=== PATIENT | male | born 1995 | race Caucasian/White ===

== ENCOUNTER 2017-08-16 14:18 | Inpatient (IN) | payer OTHER, MEDICAID ==
--- NOTE | 2017-08-16 16:31 | ED ---
General Adult HPI - General Chief complaint: Psychiatric Symptoms Stated complaint: Mental Health Eval Time Seen by Provider: 08/16/17 15:58 Source: patient, family, RN notes reviewed Mode of arrival: ambulatory Limitations: no limitations - History of Present Illness Initial comments: Patient 21-year-old male who presents emergency room today with his mother, the chief complaint of needing a psychiatric evaluation. Patient does admit that he was just at his psychiatrist's office and was advised come over here for admission. He does admit that he's had thoughts of hurting himself. He gives an example that last night he was laying in bed and he is thinking about where weapons were in the house. Patient states he has had thoughts in the past of hurting others but there is no one specifically. Patient denies any other complaints at this time. States he has been taking his medications as prescribed. Patient denies any recent fever, chills, shortness of breath, chest pain, back pain, abdominal pain, nausea or vomiting, numbness or tingling, headaches or visual changes, or any other complaints. - Related Data Home Medications Medication Instructions Recorded Confirmed ARIPiprazole [Abilify] 30 mg PO DAILY 08/16/17 08/16/17 FLUoxetine HCL [PROzac] 40 mg PO DAILY 08/16/17 08/16/17 Allergies Allergy/AdvReac Type Severity Reaction Status Date / Time ibuprofen [From Motrin] Allergy Rash/Hives Verified 08/16/17 21:06 Milk Containing Products AdvReac Nausea & Verified 08/16/17 21:06 [Dairy] Vomiting Review of Systems ROS Statement: Those systems with pertinent positive or pertinent negative responses have been documented in the HPI. ROS Other: All systems not noted in ROS Statement are negative. Past Medical History Past Medical History: No Reported History History of Any Multi-Drug Resistant Organisms: None Reported Past Surgical History: Tonsillectomy Past Psychological History: Depression Smoking Status: Never smoker Past Alcohol Use History: None Reported Past Drug Use History: None Reported - Past Family History Family Additional Family Medical History / Comment(s): He reports an uncle with psychiatry problems that he gets admitted to our mental health unit General Exam - General Exam Comments Initial Comments: General: The patient is awake and alert, in no distress, and does not appear acutely ill. Eye: Pupils are equal, round and reactive to light, extra-ocular movements are intact. No nystagmus. There is normal conjunctiva bilaterally. No signs of icterus. Ears, nose, mouth and throat: There are moist mucous membranes and no oral lesions. Neck: The neck is supple, there is no tenderness or JVD. Cardiovascular: There is a regular rate and rhythm. No murmur, rub or gallop is appreciated. Respiratory: Lungs are clear to auscultation, respirations are non-labored, breath sounds are equal. No wheezes, stridor, rales, or rhonchi. Musculoskeletal: Normal ROM, no tenderness. Strength 5/5. Sensation intact. Pulses equal bilaterally 2+. Neurological: A&O x 3. CN II-XII intact, There are no obvious motor or sensory deficits. Coordination appears grossly intact. Speech is normal. Skin: Skin is warm and dry and no rashes or lesions are noted. Psychiatric: Cooperative. Limitations: no limitations Course Vital Signs 08/16/17 08/16/17 14:35 18:45 Temperature 98.4 F 98.9 F Pulse Rate 73 87 Respiratory 16 18 Rate Blood Pressure 152/84 142/65 O2 Sat by Pulse 100 98 Oximetry Medical Decision Making - Lab Data Lab Results 08/16/17 08/16/17 Range/Units 16:55 16:55 Urine Color Light Yellow Urine Appearance Clear (Clear) Urine pH 6.5 (5.0-8.0) Ur Specific [place] 1.012 (1.001-1.035) Urine Protein Negative (Negative) Urine Glucose (UA) Negative (Negative) Urine Ketones Negative (Negative) Urine Blood Negative (Negative) Urine Nitrite Negative (Negative) Urine Bilirubin Negative (Negative) Urine Urobilinogen <2.0 (<2.0) mg/dL Ur Leukocyte Esterase Negative (Negative) Urine Opiates Screen Not Detected (NotDetected) Ur Oxycodone Screen Not Detected (NotDetected) Urine Methadone Screen Not Detected (NotDetected) Ur Propoxyphene Screen Not Detected (NotDetected) Ur Barbiturates Screen Not Detected (NotDetected) U Tricyclic Antidepress Not Detected (NotDetected) Ur Phencyclidine Scrn Not Detected (NotDetected) Ur Amphetamines Screen Not Detected (NotDetected) U Methamphetamines Scrn Not Detected (NotDetected) U Benzodiazepines Scrn Not Detected (NotDetected) Urine Cocaine Screen Not Detected (NotDetected) U Marijuana (THC) Screen Not Detected (NotDetected) Disposition Clinical Impression: Suicidal ideation Disposition: ADMITTED IP TO THIS HOSP Condition: Stable
[2017-08-16 17:13] LABS: Amphetamine Screen,Urine Not Detected (NotDetected); Barbiturate Screen,Urine Not Detected (NotDetected); Benzodiazepines Screen,Urine Not Detected (NotDetected); Cocaine Screen,Urine Not Detected (NotDetected); Methadone Screen, Urine Not Detected (NotDetected); Opiate Screen,Urine Not Detected (NotDetected); Oxycodone Screen, Urine Not Detected (NotDetected); Phencyclidine Screen,Urine Not Detected (NotDetected); Tricyclic Antidepressant,Urine Not Detected (NotDetected); Urn Cannabinoid Scrn Not Detected (NotDetected)
[2017-08-16] MEDS ORDERED: MAGNESIUM HYDROXIDE 2,400 MG/10 ML CUP PO PRN (19:18)
[2017-08-16] MEDS ORDERED: ACETAMINOPHEN TAB 325 MG TAB PO PRN (19:18)
[2017-08-16] MEDS ORDERED: ZIPRASIDONE 20 MG VIAL IM PRN (19:18)
[2017-08-16] MEDS ORDERED: MAG HYDROX/AL HYDROX/SIMETH 30 ML CUP PO PRN (19:18)
[2017-08-16 19:55] LABS: Appearance,Urine Clear (Clear); Bilirubin,Urine Negative (Negative); Blood,Urine Negative (Negative); Color,Urine Light Yellow; Glucose,Urine (UA) Negative (Negative); Ketones,Urine Negative (Negative); Leukocyte Esterase,Urine Negative (Negative); Nitrite,Urine Negative (Negative); PH, Urine 6.5 (5.0-8.0); Protein,Urine Negative (Negative); Specific Gravity,Urine 1.012 (1.001-1.035); Urobilinogen,Urine <2.0 mg/dL (<2.0)
[2017-08-16] MEDS: LORazepam 1 MG TAB PO PRN (21:21)
--- NOTE | 2017-08-16 22:22 | P.MDCNMH ---
History of Present Illness H&P Date: 08/16/17 Chief Complaint: Medical management 21-year-old male with no significant past medical history except for mental health issues depression and anxiety. He presented due to suicidal ideation he was looking for weapons around him and was thinking of using 1 to hurt himself. He denies any suicide attempts in the past. He feels better now otherwise denies any physical complaints or any medical issues he denies any headache fevers chills weight loss, denies any abdominal pain or chest pain or trouble breathing denies any changes in his urinary or bowel habits denies any bleeding denies any focal neurologic deficits. Review of Systems Pertinent positives as noted in HPI. All other systems were reviewed and are negative Past Medical History Past Medical History: No Reported History History of Any Multi-Drug Resistant Organisms: None Reported Past Surgical History: Tonsillectomy Smoking Status: Never smoker - Past Family History Family Additional Family Medical History / Comment(s): He reports an uncle with psychiatry problems that he gets admitted to our mental health unit Medications and Allergies Home Medications Medication Instructions Recorded Confirmed Type ARIPiprazole [Abilify] 30 mg PO DAILY 08/16/17 08/16/17 History FLUoxetine HCL [PROzac] 40 mg PO DAILY 08/16/17 08/16/17 History Allergies Allergy/AdvReac Type Severity Reaction Status Date / Time ibuprofen [From Motrin] Allergy Rash/Hives Verified 08/16/17 21:06 Milk Containing Products AdvReac Nausea & Verified 08/16/17 21:06 [Dairy] Vomiting Physical Exam Vitals: Vital Signs Temp Pulse Pulse Resp BP BP Pulse Ox 08/16/17 19:23 98.9 F 78 18 135/61 08/16/17 18:45 98.9 F 87 18 142/65 98 08/16/17 14:35 98.4 F 73 16 152/84 100 Intake and Output 08/16/17 08/16/17 08/16/17 06:59 14:59 22:59 Other: Weight 110.677 kg 106.614 kg Patient Weight 08/17/17 06:59 Weight 106.614 kg Constitutional: No acute distress, conversant, pleasant Eyes: Anicteric sclerae, moist conjunctiva, no lid-lag Pupils equal round reactive to light ENMT: NC/AT Oropharynx clear, no erythema, exudates Neck: Supple, FROM, no masses, or JVD No carotid bruits No thyromegaly Lungs: Clear to auscultation Clear to percussion Normal respiratory effort, no accessory muscle use Cardiovascular: Heart regular in rate and rhythm, No murmurs, gallops, or rubs No peripheral edema Abdominal: Soft Nontender, no guarding, rebound or rigidity Abdomen moving with respiration Normoactive bowel sounds No hepatomegaly, No splenomegaly No palpable mass No abdominal wall hernia noted Skin: Normal temperature, tone, texture, turgor No induration No subcutaneous nodules No rash, lesions No ulcers Extremities: No digital cyanosis No clubbing Pedal pulses intact and symmetrical Radial pulses intact and symmetrical No calf tenderness Psychiatric: Alert and oriented to person, place and time Flat affect Poor judgment Neuro Muscles Strength 5/5 in all 4 extremities Sensation to light touch grossly present throughout No focal sensory deficits Lymphatics: no palpable cervical or supraclavicular , or inguinal lymph nodes Cranial Nerve Examination - Cranial Nerves Cranial Nerve II- Optic: Intact Cranial Nerve III- Oculomotor: Intact Cranial Nerve IV- Trochlear: Intact Cranial Nerve V- Trigeminal: Intact Cranial Nerve - Abducens: Intact Cranial Nerve VII- Facial: Intact Cranial Nerve VIII- Auditory: Intact Cranial Nerve IX- Glossopharyngeal: Intact Cranial Nerve X- Vagus: Intact Cranial Nerve XI- Accessory: Intact Cranial Nerve XII- Hypoglossal: Intact Assessment and Plan (1) Suicidal ideation Current Visit: Yes Status: Acute Code(s): R45.851 - SUICIDAL IDEATIONS SNOMED Code(s): 5164247 (2) Depression Current Visit: Yes Status: Acute Code(s): F32.9 - MAJOR DEPRESSIVE DISORDER , SINGLE EPISODE, UNSPECIFIED SNOMED Code(s): 83966717 Plan: Continue management per psych recommendations Patient is low risk and ambulatory for DVT prophylaxis Thank you for allowing us to participate in the care of this patient. We will follow peripherally. Do not hesitate to contact us with questions. Someone can be reached from the [facility] hospitalist group at all hours of the day at [phone].
[2017-08-17 08:21] LABS: Basophils # (A) 0.1 k/uL (0-0.2); Basophils % (A) 1 %; Eosinophils # (A) 0.5 k/uL (0-0.7); Eosinophils % (A) 5 %; HGB 15.2 gm/dL (13.0-17.5); Lymphocytes # (A) 2.3 k/uL (1.0-4.8); Lymphocytes % (A) 26 %; MCH 29.6 pg (25.0-35.0); MCV 89.6 fL (80.0-100.0); Mean Platelet Volume 7.1; Monocytes # (A) 0.4 k/uL (0-1.0); Monocytes % (A) 5 %; Neutrophils # (A) 5.4 k/uL (1.3-7.7); Neutrophils % (A) 62 %; Platelet Count 237 k/uL (150-450); RBC 5.14 m/uL (4.30-5.90); RDW 12.6 % (11.5-15.5); WBC 8.8 k/uL (4.0-11.0)
[2017-08-17 08:23] LABS: ALT 140 U/L (21-72); AST 71 U/L (17-59); Albumin 4.4 g/dL (3.5-5.0); Alkaline Phosphatase 67 U/L (38-126); Anion Gap 12 mmol/L; Blood Urea Nitrogen 15 mg/dL (9-20); Carbon Dioxide 29 mmol/L (22-30); Chloride 102 mmol/L (98-107); Cholesterol 163 mg/dL (<200); Glucose 89 mg/dL (74-99); HDL Cholesterol 33 mg/dL (40-60); LDL Cholesterol,Calculated 104 mg/dL (0-99); Potassium 4.5 mmol/L (3.5-5.1); Sodium 143 mmol/L (137-145); Total Bilirubin 1.9 mg/dL (0.2-1.3); Total Protein 7.2 g/dL (6.3-8.2); Triglycerides 131 mg/dL (<150)
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
[2017-08-17] MEDS: ARIPiprazole 15 MG TAB PO SCH (09:06)
[2017-08-17] MEDS: FLUoxetine HCL 20 MG CAP PO SCH (09:06)
[2017-08-17] MEDS: LURASIDONE 40 MG TAB PO SCH (19:03)
[2017-08-18] MEDS: FLUoxetine HCL 20 MG CAP PO SCH (09:02)
[2017-08-18] MEDS: ARIPiprazole 15 MG TAB PO SCH (09:02)
--- NOTE | 2017-08-18 13:43 | P.PN ---
Progress Note - Text Progress Note Date: 08/18/17 Interval History: Patient is a 21-year-old male who [place] [facility] [place] reports that he slept well last evening, continues to have some suicidal ideation but states that he doesn't have the thoughts to act on it as he did prior to his admission. Patient states that he has been eating better here and has been going to groups and socializing with some of his peers. He reports that the voices have diminished and are not as frequent. Patient reported no side effects from the adjustment in his medication. Patient states that he continues to feel safer here in the hospital. He states he is feeling less depressed. Mental Status: Appearance/Attitude: Patient is appropriately dressed, makes good eye contact and is cooperative Behavior: Patient does not slay psychomotor agitation or retardation. Speech/Language: Patient's speech is spontaneous, of normal volume and rhythm and he is coherent Thought Process: Patient is goal-directed, not circumstantial or tangential and no loose associations or flight of ideas Thought Content: Patient reports that the voices, which she described as screaming and noise have diminished in intensity and frequency he denies any current visual hallucinations. Patient states he is no longer feeling paranoid and feels safer here in the hospital. No other delusional ideation was elicited. Patient states he slept well and is eating better. He reports that he socializing with some of the peers. Suicidal/Homicidal Ideation: Patient states that he continues to have suicidal ideation at times but no intent to act and no current homicidal ideation Sensorium/Cognition: Patient is alert and oriented to person, place, time and his recent and remote memory are grossly intact Mood/Affect: Patient's mood is depressed and his affect is blunted Insight/Judgment: Patient's insight and judgment are fair Assessment: Patient reports he feels safer in the hospital and slept well last evening and states that the voices are still present but of decreased in intensity. He states that he continues to have suicidal ideation at times but no intent or urge to act on them. He states that he is been going to groups and has been interacting with his peers. Patient reports no side effects from his medications at this time and has been attending groups and activities. Plan: Patient will continue on low 2-40 mg at dinnertime, Prozac 40 mg in the morning and his Abilify at 15 mg. Patient continues to require hospitalization to further stabilize his mood.
[2017-08-18] MEDS: LURASIDONE 40 MG TAB PO SCH (18:25)
[2017-08-19] MEDS: FLUoxetine HCL 20 MG CAP PO SCH (08:56)
[2017-08-19] MEDS: ARIPiprazole 15 MG TAB PO SCH (08:56)
--- NOTE | 2017-08-19 09:27 | P.PN ---
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 He reports that he continues to have delusional thoughts mainly paranoid nature. He feels that hallucinations have decreased however he will still have some flashes of images pertaining to suicide. He reports appetite is stable. He has been started on Latuda 40 mg daily his Abilify has been reduced to 15 mg daily. We discussed continuing this cross titration off of Abilify. The patient's indicating no side effects from the Latuda. He reports his family visited over the weekend and they were supportive. Mental status exam: The patient is alert he is dressed in his own clothing. Eye contact is appropriate speech is fluent. He does not have much spontaneous speech but he appropriately answers questions asked of him. He reports experiencing flashes of images pertaining to suicide. He states these are less frequent when he is around others and more frequent when he is alone. He has no thoughts of wanting to hurt others. He is endorsing no auditory or visual hallucinations today but he continues to have some paranoid thoughts of feeling unsafe. He demonstrates no verbal or physical aggressiveness. He demonstrates no abnormal involuntary movements. Insight and judgment limited. He remains oriented to person place and date. Plan: The patient will continue on the Latuda however we will increase the dose to 60 mg daily. We will reduce the Abilify to 10 mg daily. He will continue on the Prozac as written. We will continue to monitor his symptoms of psychosis and any suicidal ideation. He requires continued psychiatric hospitalization for further stabilization. Vital signs reviewed.
[2017-08-19 17:26] LABS: ALT 132 U/L (21-72); AST 41 U/L (17-59); Albumin 4.4 g/dL (3.5-5.0); Alkaline Phosphatase 61 U/L (38-126); Anion Gap 10 mmol/L; Blood Urea Nitrogen 19 mg/dL (9-20); Calcium 9.9 mg/dL (8.4-10.2); Carbon Dioxide 30 mmol/L (22-30); Chloride 101 mmol/L (98-107); Glucose 91 mg/dL (74-99); Potassium 4.6 mmol/L (3.5-5.1); Sodium 141 mmol/L (137-145); Total Bilirubin 2.2 mg/dL (0.2-1.3); Total Protein 7.2 g/dL (6.3-8.2)
[2017-08-19] MEDS: LURASIDONE 40 MG TAB PO SCH (18:05)
[2017-08-20] MEDS: LORazepam 1 MG TAB PO PRN (02:04)
[2017-08-20] MEDS: FLUoxetine HCL 20 MG CAP PO SCH (08:43)
[2017-08-20] MEDS ORDERED: ARIPiprazole 10 MG TAB PO SCH (09:00)
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
[2017-08-20] MEDS: LURASIDONE 40 MG TAB PO SCH (18:28)
--- NOTE | 2017-08-21 08:58 | P.PN ---
Progress Note - Text Interval history: The patient is found in the [facility] she follows me to an interview room. He reports that his mood yesterday was better. He felt less anxious and less fearful. He indicates he went to bed after dinner and slept through the whole night until this morning. He reports attending groups and finds them helpful. He is able to describe feedback she has gotten from some staff members. He has spoken to his family via phone. We reviewed his psychotropic medication his questions were answered. He is endorsing no side effects from his medication at this point. Mental status exam: The patient is a male appearing his stated age he has adequate hygiene grooming. He is dressed in his own clothing. He reports his mood is better. He states he continues to hear his name called but it is not as clear and he is able to distract himself from. His feelings of fearfulness are reduced. He is endorsing no suicidal or homicidal ideation intent or plan. He demonstrates no verbal or physical aggressiveness. He seated calmly in the chair without any agitation. He demonstrates no abnormal involuntary movements. Affect is constricted. Insight and judgment limited but improving. Plan: The patient will continue on his current medication however we will reduce Abilify to 5 mg daily as we plan to taper off of Abilify. We will consider titrating Latuda further if needed. We will monitor him for safety and encourage his participation in the milieu. Vital signs reviewed.
[2017-08-21] MEDS: FLUoxetine HCL 20 MG CAP PO SCH (08:59)
[2017-08-21] MEDS: ARIPiprazole 5 MG TAB PO SCH (08:59)
[2017-08-21] MEDS: LURASIDONE 40 MG TAB PO SCH (18:44)
[2017-08-22] MEDS: FLUoxetine HCL 20 MG CAP PO SCH (09:06)
[2017-08-22] MEDS: ARIPiprazole 5 MG TAB PO SCH (09:06)
--- NOTE | 2017-08-22 09:14 | P.PN ---
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 Overall he feels his mood is improving. He feels that the previous paranoid thoughts are reduced and easier to manage. He is endorsing no auditory or visual hallucinations. He is reporting no acute suicidal ideation. He states over the last 2 days he has felt much better than when he was first admitted. His girlfriend visited last evening and he felt that was supportive. He is looking forward to returning home to the support of his family. Mental status exam: The patient is alert he seated calmly eye contact is appropriate speech is fluent spontaneous nonpressured. He maintains a constricted affect. He expresses his mood is better he is reporting no acute suicidal or homicidal ideation intent or plan. He does still have some feelings that he may be monitored or in danger at home but he reports they are significantly reduced in terms of severity. He is endorsing no auditory or visual hallucinations. He demonstrates no abnormal involuntary movements he demonstrates no verbal or physical aggressiveness. He does demonstrate some difficulty with maintaining concentration and he does ask some of the same questions each day. He remains oriented to person place and date. Plan: The patient will continue on his current medications. We will consider discharging him tomorrow if he demonstrates continued improvement and clinical stability. We will plan to discontinue the Abilify. We will consider titrating the Latuda further if needed. We will continue to monitor him for safety and encourage his participation in the milieu. He requires psychiatric hospitalization for further monitoring due to the acute nature of his symptoms upon presentation.
[2017-08-22] MEDS: LURASIDONE 40 MG TAB PO SCH (17:51)
[2017-08-23 00:57] VITALS: BP 133/63; PULSE 59; RESP 12; TEMP 98.6
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
[2017-08-23] MEDS: FLUoxetine HCL 20 MG CAP PO SCH (08:47)
[2017-08-23] MEDS: ARIPiprazole 5 MG TAB PO SCH (08:47)
== END 2017-08-23 09:15 | disposition home or self-care (01) | DRG 885 ==
LOC: EC 14:18 → 3MHU 18:30
PROVIDERS: ADMIT Psychiatry & Neurology Psychiatry; ATTEND Psychiatry & Neurology Psychiatry
DX: F25.1 Schizoaffective disorder, depressive type (principal); R45.851 Suicidal ideations; E66.3 Overweight; F41.9 Anxiety disorder, unspecified; Z79.899 Other long term (current) drug therapy; Z81.8 Family history of other mental and behavioral disorders; Z88.6 Allergy status to analgesic agent
CPT/HCPCS: 80053; 80061; 80306; 81003; 82075; 83036; 84443; 85025; 99285